=== PATIENT | male | born 1950 | race Caucasian/White ===

== ENCOUNTER → 2016-11-10 | Outpatient (CLI) | payer MEDICARE ==
[~2016-11-10] MED LIST: 'KLONOPIN0.5 MG PO; ALLOPURINOL100 MG PO; ASPIRIN ADULT L81 M1 PO; ASPIRIN325 MG PO; B COMPLEX1 EACH PO; CIALIS20 MG PO; CO Q10100 MG PO; COLCRYS0.6 MG PO; COREG6.25 MG PO; COZAAR25 MG PO; CRESTOR20 MG PO; DIAZEPAM2 MG PO; HYDR25T PO; KEFLEX500 MG PO; LIPITOR40 MG PO; MECLIZINE HCL25 M2 PO; MELATONIN10 M4 PO; NORVASC5 MG PO; OMEPRAZOLE D/R20 MG PO; PLAVIX75 MG PO; PREDNISONE10 MG PO; RED YEAST RICE600 M1 PO; SELENIUM200 MC3 PO; VICODIN 500 MG-1 TAB PO; VITAMIN C500 M4 PO; VITAMIN D-32000 UNI1 PO
== END | disposition home or self-care (01) ==
LOC: US 01:51
DX: N32.89 Other specified disorders of bladder (principal); N28.1 Cyst of kidney, acquired

== ENCOUNTER → 2018-05-31 | Outpatient (CLI) | payer MEDICARE, OTHER ==
--- NOTE | ~2018-05-31 | PF ---
[place], [place] PULMONARY FUNCTION TEST NAME: [id number] UNIT #: [id number] ROOM: DOCTOR: NICOLE BURTON MD,AMARA BIRTHDATE: [birth year] DOS: 05/31/2018 TESTING WAS ORDERED BY: Larry Holloway. HISTORY: The patient is a 67-year-old male, height of 70 inches, weight of 240 pounds, BMI 34.4. The patient was reported diagnosis of pneumonia. There were no past tobacco use. SPIROMETRY: The FVC 4 liters, 92% predicted value. The FEV1 was 3.25 liters, 98% predicted value. Ratio of FEV1/FVC 81%. No changes occurred postbronchodilator testing. Flow volume suggestive of mild obstructive airway pattern. LUNG VOLUMES: Thoracic gas volume 70%, residual volume 98%, total lung capacity 91%. The patient's airway resistance and passive conductance were normal with partial improvement post-bronchodilators. The patient's lung diffusion recorded 65% without correction of carbon monoxide hemoglobin values. FINAL IMPRESSION: Evidence of moderate reduction in lung diffusion to be correlated to the patient's clinical history and radiology data. Mild reversible obstructive lung disease such as bronchial asthma cannot be completely excluded. Clinical correlation would be advised. AMARA RIVERA MD CM:PFREPORT:PULMONARY FUNCTION TEST [id number] AMARA BURTON MD
--- NOTE | 2018-05-31 11:30 | NUR ---
PT ASSESSED FOR HOME O2 FOLLOWS: SAT 94% RA AT REST HR 91 BP 100/70 SAT 93% RA, DURING AMBULATION SAT 95% RA, DURING RECOVERY HR 91 BP 118/78 CALLED OFFICE TO ASK FOR A O2 ASSESSMENT DUE TO PT.S LIPS BEING BLUISH IN COLOR AND HIS SAT% CHECKED AND IT WAS READING 88-89%. ASSESSMENT DONE AFTER AEROSOL GIVEN FOR POST PFT TESTING. PT TOLERATED AMBULATION WELL AND STATES HE REALLY DOES'NT WANT O2 AT HOME.
== END | disposition home or self-care (01) ==
LOC: CP → LAB 11:52
DX: C43.9 Malignant melanoma of skin, unspecified (principal); C43.59 Malignant melanoma of other part of trunk; R21 Rash and other nonspecific skin eruption

== ENCOUNTER → 2018-06-28 | Outpatient (CLI) | payer MEDICARE, OTHER | END | disposition home or self-care (01) | LOC: MRI 04:42 | DX: H74.8X2 Other specified disorders of left middle ear and mastoid (principal); C43.9 Malignant melanoma of skin, unspecified; I10 Essential (primary) hypertension; R42 Dizziness and giddiness; C43.59 Malignant melanoma of other part of trunk; C78.7 Secondary malignant neoplasm of liver and intrahepatic bile duct; R21 Rash and other nonspecific skin eruption ==

== ENCOUNTER → 2018-08-29 | Outpatient (CLI) | payer MEDICARE, OTHER ==
[~2018-08-29] MED LIST changes: +AMBIEN10 M1 PO; +ARTIFICIAL TEA1 EACH OP; +BENADRYL ALLERG25 M5 PO; +CIPRODEX 0.3%-7.5 ML IO; +CIPRODEX 0.3%-7.5 ML OT; +CO Q-10 RED YE1 EACH PO; +COREG3.125 MG PO; +CRANBERRY200 MG PO; +CYCLOBENZAPRINE10 MG PO; +DELTASONE20 M1 PO; +FLOMAX0.4 MG PO; +KEYTRUDA100 MG/4 M IV; +MITIGARE0.6 MG PO; +NEURONTIN100 MG PO; +NEURONTIN300 MG PO; +OMEPRAZOLE20 M2 PO; +PREDNISONE20 M1 PO; +PROBIOTIC1 EAC1 PO; +PROSCAR5 M1 PO; +PROTONIX TR40 M1 PO; +TRIAMTERENE & H1 CAP PO; +TYLENOL325 M2 PO
== END | disposition home or self-care (01) ==
LOC: MRI 02:33
PROVIDERS: Radiology Diagnostic Radiology
DX: C43.9 Malignant melanoma of skin, unspecified (principal); C43.59 Malignant melanoma of other part of trunk; C78.7 Secondary malignant neoplasm of liver and intrahepatic bile duct; C79.31 Secondary malignant neoplasm of brain; R21 Rash and other nonspecific skin eruption

== ENCOUNTER 2018-11-17 21:49 | Inpatient (IN) | payer MEDICARE, OTHER ==
[~2018-11-17] VITALS: Ht 177.8 cm; Wt 112.5 kg
--- NOTE | ~2018-11-17 | EKG ---
[place], [place] ELECTROCARDIOGRAM REPORT NAME: JULITA OSPINA I UNIT #: [id number] ROOM: 511 DOCTOR: YOHAN DRAFT REPORT BIRTHDATE: [birth year] [facility] Test Date: 2018-11-17 Test Time: 22:21:31 Pat Name: JULITA OSPINA Department: Room: 511 Gender: M Hyperbaric Technologist: : 1950 Requested By: CONSTANCE BAILEY Order Number: [id number] Reading MD: Kristi Salmeron MD Measurements Intervals [place] Rate: 93 P: 74 LA: 188 QRS: 104 QRSD: 96 T: 22 QT: 335 QTc: 417 Interpretive Statements Sinus rhythm Left atrial enlargement Right axis deviation Low voltage, precordial leads Borderline T wave abnormalities Compared to ECG 10/26/2018 13:59:25 Atrial abnormality now present Right-axis deviation now present Low QRS voltage now present Left posterior fascicular block no longer present T-wave abnormality still present Electronically Signed On 11-18-2018 10:30:26 PDT by Kristi Salmeron MD CM:EKGRPT:ELECTROCARDIOGRAM REPORT [id number] CONSTANCE MORIN DRAFT REPORT CONSTANCE BAILEY DO
[~2018-11-17 21:49] MED LIST changes: -ARTIFICIAL TEA1 EACH OP; -CIPRODEX 0.3%-7.5 ML OT; -DELTASONE20 M1 PO; -PREDNISONE20 M1 PO; -PROTONIX TR40 M1 PO; -TYLENOL325 M2 PO
[2018-11-17 21:53] VITALS: BP 134/80
[2018-11-17 22:18] LABS: HEMATOCRIT 47.3 % (42.0-52.0); HEMOGLOBIN 15.4 g/dl (14.0-18.0); MEAN CORPUSCULAR HGB CONC 32.6 g/dl (33.0-37.0); MEAN PLATELET VOLUME 10.4 fl (9.6-12.3); PLATELET COUNT AUTOMATED 216 10*3/uL (130-400); RED CELL DISTRI WIDTH 14.6 % (0-14.5); WHITE BLOOD COUNT 17.5 10*3/uL (4.8-10.8)
[2018-11-17 22:33] LABS: ACT PARTIAL THROMBO TIME 21.6 SECONDS (20.0-32.1); INTERNATIONAL NORM RATIO 0.9 (2.0-3.5)
[2018-11-17 22:34] LABS: ALBUMIN 2.9 gm/dl (3.1-4.5); ALKALINE PHOSPHATASE 64 U/L (45-117); BUN 39 mg/dl (7-24); CHLORIDE 104 mmol/L (98-107); CREATININE 1.44 mg/dL (0.70-1.30); LIPASE 163 U/L (73-393); POTASSIUM 4.3 mmol/L (3.5-5.1); SGOT/AST 30 IU/L (3-35); SGPT/ALT 99 U/L (12-78); SODIUM 138 mmol/L (136-145); TOTAL PROTEIN 6.2 gm/dL (6.4-8.2)
[2018-11-17 22:35] LABS: TROPONIN I < 0.015 ng/ml (<0.045)
[2018-11-17 22:39] LABS: PLATELET SUFFICIENCY NORMAL (NORMAL); TOTAL CELLS COUNTED 100 #CELLS
--- NOTE | 2018-11-17 22:45 | NUR ---
PATIENT REFUSED CXR. Jameel CORMIER. DR. PARKS NOTIFIED OF BOTH
[2018-11-18 00:06] VITALS: BP 130/68
[2018-11-18 01:11] LABS: BILIRUBIN NEGATIVE (NEGATIVE); BLOOD 3+ (NEGATIVE); CLARITY SL CLOUDY (CLEAR); COLOR YELLOW (YELLOW); GLUCOSE NEGATIVE (NEGATIVE); KETONE NEGATIVE (NEGATIVE); LEUKO ESTERASE TRACE (NEGATIVE); NITRITE POSITIVE (NEGATIVE)
[2018-11-18 01:19] LABS: BACTERIA 4+; RBC 51-100 rbc/hpf (0-2)
[2018-11-18 01:20] VITALS: BP 143/86
--- NOTE | 2018-11-18 01:20 | NUR ---
A 68, admitted to 5E, under the services of JOHN Hewitt DO with a diagnosis of AMBULATORY DYSFUNCTION. Chief complaint is WEAKNESS. Patient arrived via bed from ER. Monitor applied. Initial assessment completed. Vital signs taken and recorded. JOHN HEWITT DO notified of admission to the unit. Orders received. See assessment for past medical history, medications and allergies. Patient and/or family oriented to unit. [address] visitation policy reviewed. Clothing/patient valuable form completed. SKIN WDI. NO WOUNDS. AMANDA HARE
[2018-11-18] MEDS ORDERED: TYLENOL325 M2 PO (02:02)
[2018-11-18] MEDS ORDERED: CIPRODEX 0.3%-7.5 ML OT (02:11)
[2018-11-18] MEDS ORDERED: NEURONTIN300 MG PO (02:16)
[2018-11-18] MEDS ORDERED: ARTIFICIAL TEA1 EACH OP (02:19)
[2018-11-18] MEDS ORDERED: PROTONIX TR40 M1 PO (02:20)
[2018-11-18] MEDS ORDERED: DELTASONE20 M1 PO (02:21)
--- NOTE | 2018-11-18 03:02 | NUR ---
SPOKE TO DR. SIBLEY AND LET HIM KNOW THE PTS GAVE ME A LIST OF PTS MEDICATIONS AND ON THE LIST THERE WAS A NOTE STATING TO "NOT GIVE ANY ANTIBIOTICS UNLESS CLEARED DR BOO [phone]". DR. SIBLEY STATED TO HOLD MERREM FOR NOW.
--- NOTE | 2018-11-18 03:05 | NUR ---
DR. SIBLEY NOTIFIED OF PTS WISHES TO BE DNR-CC. PAPER WORK ON CHART, SIGNED BY TWO RNS.
--- NOTE | 2018-11-18 06:54 | NUR ---
PT WAS ABLE TO FEEL THAT BLADDER WAS FULL AND VOIDED A TOTAL OF 1100 THIS MORNING. PT NEEDS ASSISTANCE WITH HOLDING URINAL DUE TO NEUROPATHY IN HANDS CAUSING HIM DIFFICULTY TO GRASP ONTO THINGS.
[2018-11-18 06:56] LABS: HEMATOCRIT 43.9 % (42.0-52.0); HEMOGLOBIN 14.3 g/dl (14.0-18.0); MEAN CELL VOLUME 86.8 fl (80.0-94.0); MEAN CORPUSCULAR HGB 28.3 pg (27.0-31.0); MEAN CORPUSCULAR HGB CONC 32.6 g/dl (33.0-37.0); MEAN PLATELET VOLUME 10.3 fl (9.6-12.3); PLATELET COUNT AUTOMATED 171 10*3/uL (130-400); RED BLOOD COUNT 5.06 10*6/uL (4.50-5.90); RED CELL DISTRI WIDTH 14.6 % (0-14.5); WHITE BLOOD COUNT 18.4 10*3/uL (4.8-10.8)
[2018-11-18 07:22] LABS: PLATELET SUFFICIENCY NORMAL (NORMAL); TOTAL CELLS COUNTED 100 #CELLS
[2018-11-18 07:25] LABS: CHLORIDE 107 mmol/L (98-107); SODIUM 141 mmol/L (136-145)
[2018-11-18 07:40] LABS: ALBUMIN 2.7 gm/dl (3.1-4.5); ALKALINE PHOSPHATASE 56 U/L (45-117); BUN 33 mg/dl (7-24); CHOLESTEROL 177 mg/dL (<200); CREATININE 1.21 mg/dL (0.70-1.30); FREE T4 0.77 ng/dl (0.76-1.46); HDL CHOLESTEROL 57 mg/dl (40-60); LDL CHOLESTEROL 87 mg/dL (9-159); PHOSPHOROUS 2.8 mg/dL (2.5-4.9); SGOT/AST 20 IU/L (3-35); SGPT/ALT 83 U/L (12-78); TOTAL PROTEIN 5.6 gm/dL (6.4-8.2); TRIGLYCERIDES 164 mg/dl (<150); VLDL CHOLESTEROL 33 mg/dL (6-40)
[2018-11-18 08:00] VITALS: BP 122/56
[2018-11-18 09:34] LABS: VITAMIN D, 25-HYDROXY 37.4 ng/mL (30-100)
[2018-11-18 12:00] VITALS: BP 125/81
[2018-11-18 16:00] VITALS: BP 123/80
[2018-11-18 20:00] VITALS: BP 124/70
--- NOTE | 2018-11-18 20:09 | NUR ---
NOTIFIED OF PATIENT'S REQUEST FOR EYE DROPS FOR C/O DRY EYES. DISCUSSED PATIENT'S ARTIFICIAL TEARS ON HOME MED REC. INSTRUCTED TO ORDER EYE DROPS PER HOME SCHEDULE.
--- NOTE | 2018-11-18 22:35 | NUR ---
PO ATIVAN GIVEN PER ORDER. PT STATES EARLIER TYLENOL EFFECTIVE. WILL MONITOR. CALL LIGHT IN REACH.
[2018-11-19] VITALS: BP 134/86
--- NOTE | 2018-11-19 05:12 | NUR ---
PT AWAKE IN BED. ASISTED TO USE URINAL. WILL MONITOR. CALL LIGHT IN REACH.
[2018-11-19 06:58] LABS: BASO % 0.1 % (0.0-1.0); EOS % 0.1 % (1.0-4.0); HEMATOCRIT 46.3 % (42.0-52.0); HEMOGLOBIN 14.9 g/dl (14.0-18.0); LYMPH # 0.7 10*3/uL (1.3-4.4); LYMPH % 4.9 % (27.0-41.0); MEAN CELL VOLUME 86.7 fl (80.0-94.0); MEAN CORPUSCULAR HGB 27.9 pg (27.0-31.0); MEAN CORPUSCULAR HGB CONC 32.2 g/dl (33.0-37.0); MEAN PLATELET VOLUME 10.2 fl (9.6-12.3); MONO # 1.1 10*3/uL (0.1-1.0); MONO % 7.6 % (3.0-9.0); NEUT # 12.5 10*3/uL (2.3-7.9); NEUT % 86.1 % (47.0-73.0); PLATELET COUNT AUTOMATED 186 10*3/uL (130-400); RED BLOOD COUNT 5.34 10*6/uL (4.50-5.90); RED CELL DISTRI WIDTH 14.7 % (0-14.5); WHITE BLOOD COUNT 14.6 10*3/uL (4.8-10.8)
[2018-11-19 07:20] LABS: BUN 27 mg/dl (7-24); CHLORIDE 104 mmol/L (98-107); CREATININE 1.04 mg/dL (0.70-1.30); POTASSIUM 3.9 mmol/L (3.5-5.1); SODIUM 139 mmol/L (136-145)
--- NOTE | 2018-11-19 07:44 | NUR ---
PHYSICAL THERAPY Nursing screen received. PT orders also received. Thank you. Marybeth Donovan,PT
[2018-11-19 08:00] VITALS: BP 132/64
--- NOTE | 2018-11-19 08:30 | NUR ---
PHYSICAL THERAPY Patient evaluated on 5, full evaluation to follow. Continue with PT as per plan of care with fall, max (A) x 2, alarms and acute debility precautions. Will require SNF. PAtient is high complexity via chart review, tests and evaluation: [id number]. Thank you for this referral. Marybeth Donovan,PT
--- NOTE | 2018-11-19 08:30 | NUR ---
RECIEVED A CALL FROM PT . SHE IS REQUESTING PT GO TO [facility] ON DISCHARGE. STATES SHE HAS TALKED TO THEM AND THEY SAID ALL THE NEED IS THE REFERRAL FROM US. JOINT SETTER INFORMED. WILL CONTINUE TO FOLLOW.
--- NOTE | 2018-11-19 09:13 | NUR ---
Occupational Therapy evaluation completed on 5 with full eval to follow. PRecautions include fall risk, impaired sensation,IV UE,bed alarm, high complexity level 51444 via chart review, testing and evaluation. Recommend OT per pOC and SNF to enable return home with at prior level. Thank you. Pilar Ford OTR/l
--- NOTE | 2018-11-19 09:38 | NUR ---
DR KELLY AWARE OF RASH LOCATED ON PATIENT'S ARMS, UPPER CHEST, NECK, AND BACK. NO NEW ORDERS RECEIVED AT THIS TIME.
--- NOTE | 2018-11-19 11:39 | NUR ---
Patient and patients daughter requesting a referral to [facility], contacted facililty and faxed referral. waiting on review/acceptance.
[2018-11-19 12:00] VITALS: BP 114/73
--- NOTE | 2018-11-19 12:17 | NUR ---
Web Software Engineer in to talk to patient. Patient states lives at HOME with . There are FEW steps in the home. Physician: YUMIKO [facility]: [facility] Home health services: NONE Patient's level of ADLs: MODERATE ASSIST Patient has working utilities: YES DME: WALKER Follow-up physician's appointment after d/c: WILL BE MADE BY HOSPITALIST NURSE DIRECTOR ON DISCHARGE Does patient want to access PORTAL?: NO Discharge plan PT LIVES AT HOME WITH HIS . PT AND ARE REQUESTING REFERRAL TO [facility] ON DISCHARGE. LASER SET UP OPERATOR WORKING ON IT. WILL CONTINUE TO FOLLOW. . MIKALA KINSEY
--- NOTE | 2018-11-19 13:00 | NUR ---
RECEIVED CALL FROM [facility]. PATIENT AND FAMILY ARE CONSIDERING HOSPICE. THEY NEED ORDER FROM DOCTOR TO SEE PATIENT. WILL BE IN LATER TODAY. WILL FOLLOW UP WITH ATTENDING.
--- NOTE | 2018-11-19 13:08 | NUR ---
DR SIBLEY CALLED ABOUT [facility] CONSULT. AWAITNG NEW ORDER.
--- NOTE | 2018-11-19 13:30 | NUR ---
OT NOTE Attempted to see pt this P.M. for OT session and upon arrival pt had reports of increased fatigue and was requesting to rest at this time. Will check back at a later time/date and continue with POC as able. FOZIA Taveras/Roderick
--- NOTE | 2018-11-19 14:05 | NUR ---
Received hospice order. Patients daughter asked for referral to [facility]. Contacted facility and faxed hospice referral. Waiting on return call.
[2018-11-19 16:00] VITALS: BP 142/76
--- NOTE | 2018-11-19 16:16 | NUR ---
Nursing screen received and Occupational Therapy referral received. Thank you.Pilar Ford OTR/l
--- NOTE | 2018-11-19 17:08 | NUR ---
PATIENT REQUESTING PAIN MEDICATION FOR LEG AND ARM PAIN RATED 8/10 ON 0/10 SCALE. NORCO ADMINISTERED PRESCRIBED. WILL MONITOR FOR EFFECTIVENESS.
--- NOTE | 2018-11-19 17:22 | NUR ---
[facility] IN TO TALK WITH FAMILY AND PATIENT. THEY WANT PALLATIVE CARE. [facility] HAS PALLATIVE CARE THAT GOES TO [facility]. FAMILY WISHES TO BE DISCHARGED TO [facility]. WILL FOLLOW UP WITH CASE MANAGEMENT.
--- NOTE | 2018-11-19 17:25 | NUR ---
PHONE NUMBER FOR DR ROCHA GIVEN TO DR SIBLEY TO CALL ABOUT [facility].
--- NOTE | 2018-11-19 18:01 | NUR ---
CALLED AND LEFT MESSAGE FOR CASE MANAGEMENT ABOUT FAMILY WANTING PALLATIVE CARE AFTER SPEAKING WITH [facility]. FAMILY WOULD NOW LIKE TO BE DISCHARGED TO [place].
--- NOTE | 2018-11-19 18:08 | NUR ---
PATIENT STATES THAT NORCO WAS EFFECTIVE FOR LEG AND ARM PAIN. RATES 5/10 AT THIS TIME. WILL CONTINUE TO MONITOR.
[2018-11-19 20:00] VITALS: BP 146/90
--- NOTE | 2018-11-19 21:33 | NUR ---
PT MEDICATED WITH PO TYLENOL FOR C/O PAIN IN BL HANDS. DESCRIBES PAIN NEUROPATHY PAIN, FEELING LIKE NEEDLES & PINS. PT STATES HIS FEET FEEL MUCH BETTER TODAY, BUT HIS HANDS ARE STILL HURTING. EYE DROPS ALSO ADMINISTERED FOR C/O DRY EYES.
--- NOTE | 2018-11-19 22:24 | NUR ---
PT STATES EARLIER TYLENOL INEFFECTIVE. RATING PAIN IN BL HANDS 12/29. PT MEDICATED WITH PO NORCO PER PRN ORDER. SCHEDULED AMBIEN ALSO ADMINISTERED PER ORDER. WILL MONITOR. CALL LIGHT IN REACH.
[2018-11-20] VITALS: BP 134/86
--- NOTE | 2018-11-20 05:12 | NUR ---
PT ASSISTED TO USE URINAL. DENIES ANY NEEDS AT THIS TIME. WILL MONITOR.
--- NOTE | 2018-11-20 06:48 | NUR ---
NOTIFIED OF URINE CULTURE COMING BACK ESBL. DISCUSSED PATIENT'S HX OF METASTATIC MELANOMA AND FOLLOWING WITH , HIS ONCOLOGIST FROM [facility]. AM SHIFT RN FROM YESTERDAY GAVE 'S NUMBER TO TO DISCUSS PLAN OF CARE. PT STATES HE IS NOT TO BE PUT ON ABX UNTIL CLEARED BY . STATES HE WILL MAKE SURE DAY SHIFT FOLLOWS UP ON SITUATION.
[2018-11-20 08:00] VITALS: BP 128/90
--- NOTE | 2018-11-20 08:09 | NUR ---
Patients family met with [facility] and are interested in their Palliative care. Since hosp[facility] palliative doesn't go to [facility], family has requested to change the referral to [facility]. Contacted facility and faxed referral. waiting on review/acceptance.
--- NOTE | 2018-11-20 09:00 | NUR ---
OT NOTE Pt was seen this A.M. 1:1 for 24 minute OT session. Upon arrival pt was supine in bed. Pt identified by name and and had complaints of generalized weakness. Pt presented to therapy with mod edema in B hands. Pt transferred supine to sit EOB with modA X 2. While sitting EOB challenged pt's dynamic sitting balance needed for increased I and enhanced safety. While weight shifting, crossing midline, and reaching over all planes pt was able to maintain F+ sitting balance. Pt was educated on and completed BUE pumping exercises to help decrease edema. Sit to stand completed from bed level with modA X 2. Challenged pt's static standing tolerance needed for increased I in self care tasks and functional transfers. PT was able to tolerate aprox 30 seconds at a time before sitting due to quick onset of fatigue. Pt then transferred back into bed sit to supine with maxA X 2. There she was left with call light in hand, tray table in place, and bed alarm activated for safety. Positioned pt's UE's onto pillows for edema control. Continue with rec D/C plan to SNF. FOZIA Taveras/Roderick
--- NOTE | 2018-11-20 10:31 | NUR ---
Patient has been accepted to [place]. Requires a 3 night stay. Patient can go tomorrow, Monday11/21/18 if medically stable for discharge.
--- NOTE | 2018-11-20 11:38 | NUR ---
TALKED WITH PT NAE AND INFORMED HER THAT REFERRAL HAS BEEN SENT TO [facility] AND WE ARE WAITING FOR ACCEPTANCE. VOICES UNDERSTANDING.
[2018-11-20 12:00] VITALS: BP 112/60
--- NOTE | 2018-11-20 13:25 | NUR ---
OT NOTE Pt was seen this P.M. for second OT session consisting of 25 minutes. Upon arrival pt was supine in bed. Pt identified by name and . Pt presented to therapy with chronic pain in B hands and min edema. Pt transferred supine to sit EOB with Florencia for assist with BLE. While sitting EOB pt completed pumping exercises for 1 X 10 and provided pt with a "stress ball" for edema control and to increase strength in B hands for increased I in self feeding and self care tasks. Multiple sit to stand transfers completed from bed level with Florencia. Challenged pt's static standing tolerance needed for increased I in self care tasks and functional transfers, pt was able to tolerate aprox 45-60 seconds at a time before sitting due to fatigue. Throughout pt was very unsteady due to impaired sensation in both BLE and BUE requiring occasional Florencia to correct. Educated pt on compensatory technique for improving sensation in BLE and BUE. Pt then transferred back into bed sit to supine with maxA X 2. There he was left with call light in hand, tray table in place, and bed alarm on for safety. Continue with rec D/C plan to SNF. FOZIA Taveras/Roderick
--- NOTE | 2018-11-20 13:40 | NUR ---
PHYSICAL THERAPY Patient seen this pm 1:1 for therapy visit and was resting supine in bed following lunch upon therapist arrival. Patient presents with B hand edema and unrated c/o chronic pain. Patient transfers supine to sit EOB, MIN A and demonstrated improved transfer technique with use of B UE support. Patient able to advance LE's during transfer, but still required therapist assist with R LE to safely complete transfer. Patient instructed on improved sit to stand transfer technique and demonstrated increased velocity during initial rise which contributed to LOB. Patient needed v/c to slow velocity as well as less Intensity with focus on task. Patient completed 8-10 sit to stand transfers with moderate fatigue and brief seated rest between trials, SENIOR CYTOGENETICS LABORATORY DIRECTOR/MIN A. Patient tolerated 1 minute static stand on last trial, CGA and no LOB. Patient returned to supine in bed and remained with call light, tray table, telephone and bed alarm. Will continue per POC as tolerated, total treatment time 18 minutes. Pato Wolfe, BAR HOST
--- NOTE | 2018-11-20 15:05 | NUR ---
PT REQUESTED AND WAS MEDICATED WITH NORCO FOR C/O GENERALIZED PAIN. CALL LIGHT IN REACH. WILL MONITOR
[2018-11-20 16:00] VITALS: BP 116/48
[2018-11-20 20:00] VITALS: BP 150/73
--- NOTE | 2018-11-20 20:35 | NUR ---
PATIENT RESTING IN BED WATCHING TV. NO NEEDS. DENIES PAIN. BED IN LOWEST POSITION, CALL LIGHT IN REACH
--- NOTE | 2018-11-20 23:05 | NUR ---
MEDICATED WITH PRN NORCO FOR C/O PAIN. WILL MONITOR
[2018-11-21] VITALS: BP 142/96
--- NOTE | 2018-11-21 01:31 | NUR ---
EYE DROPS INSTILLED PER PATIENT REQUEST FOR DRY AND ITCHINESS.
[2018-11-21 08:00] VITALS: BP 140/88
--- NOTE | 2018-11-21 09:01 | NUR ---
Patient accepted to [facility], 3 night stay complete. can go when medically stable for discharge.
--- NOTE | 2018-11-21 09:15 | NUR ---
PHYSICAL THERAPY Patient seen this am 1;1 for therapy visit and was resting supine in bed following breakfast upon therapist arrival. Patient voices no new c/o's and still presents with increased B hand / wrist edema. Patient was very pleasant and eager to continue with therapy this session, transfering supine to sit EOB with improved technique / performance, MIN/CGA. Patient performed several sit to stand transfers, v/c for proper hand placement, CGA and use of wh walker standing support. Patient was a little shaky at first upon initial rise and was able to adjust his CHEN to improve static standing balance. Patient instructed and performed SPT to bedside chair, MIN A, wh walker, demonstrating bouts of unsteady step sequence and difficulty picking feet up. Following a brief seated rest, patient ambulated straight line gait, 10'x 1, unsteady gait pattern and increased difficulty with safe walker navigation due to B hand edema. Patient returned to bedside chair, remaining with call light, tray table, telephone, body alarm and was very pleased with his effort this session. Will continue per POC as tolerated, total treatment time 23 minutes. Pato Wolfe, SUEDING MACHINE TENDER
--- NOTE | 2018-11-21 09:34 | NUR ---
PT REQUESTED AND WAS MEDICATED WITH NORCO FOR C/O GENERALIZED PAIN. CALL LIGHT IN REACH. WILL MONITOR. ISOLATION PRECAUTIONS MAINTAINED.
--- NOTE | 2018-11-21 09:35 | NUR ---
OT NOTE Pt was seen this A.M. 1:1 for 39 minute OT session. Upon arrival pt was supine in bed. Pt identified by name and and had complaints of "chronic B hand pain." Pt presented to therapy with min edema in B hands. Pt transferred supine to sit EOB with Florencia for assist with UB. Challenged pt's dynamic sitting balance needed for increased I and enhanced safety. While weight shifting, crossing midline, and reaching over all planes pt was able to maintain G- sitting balance. Pt completed edema exercises to B hands for 1 X 15 to improve edema control. Multiple sit to stand transfers completed from bed level with Florencia and use of w/w for UE support. Challenged pt's static standing tolerance needed for increased I in self care tasks and functiinal transfers, pt was able to tolerate aprox 45-60 seconds at a time before sitting due to fatigue. Pt was educated on compensatory techniques due to being unable to feel his feet or hands. Stand pivot completed from EOB to recliner with Florencia and use of w/w. While sitting upright in the recliner pt completed UB bathing with Florencia for occasional assist with grasping of towel due to limited strength and reaching overhead during hair care. Pt completed oral care with use of toothbrush and built up placed onto brush to improve grasp. Extra time given throughout due to slow rate of performance. Pt was left sitting upright in the recliner with call light in hand, tray table in place, and body alarm on for safety. Continue with rec D/C plan to SNF. BOB Taveras
--- NOTE | 2018-11-21 10:35 | NUR ---
PT STATES MEDICATION EFFECTIVE. CALL LIGHT IN REACH, WILL MONITOR
[2018-11-21 12:00] VITALS: BP 118/75
--- NOTE | 2018-11-21 13:05 | NUR ---
PHYSICAL THERAPY Patient seen this pm 1:1 for therapy visit and was sitting up semi reclined in bedside chair upon therapist arrival. Patient stated "it feels good sitting up out of bed" and reports no new c/o's at this time. Patient performed several sit to stand transfers from low chair surface, Min A, demonstrating improved velocity on initial rise. Patient still needed v/c for proper hand placement / technique prior to sitting back down and demonstrated 75% compliance. Patient ambulates with use of wh walker, 12'x 1, Min/CGA, with bouts of unsteady gait pattern and increased fatigue. Patient returned to EOB sit, transfering sit to supine MIN A. Patient remained in bed with call light, tray table, telephone an bed alarm activated for safety. Will continue per POC as tolerated, total treatment time 17 minutes. Pato Blood, EMERGENCY SERVICES PROFESSIONAL
--- NOTE | 2018-11-21 13:20 | NUR ---
OT NOTE Pt was seen this P.M. 1:1 for second OT session consisting of 15 minutes. Upon arrival pt was sitting upright in the recliner. Pt identified by name and . Pt completed multiple sit to stand transfers from chair level with Florencia due to low surface and use of w/w for UE support. Pt had one LOB that occured forwrds upon inital rise that required Florencia to correct. Challenged pt's static standing tolerance and pt was able to tolerate aprox 60-72 seconds at a time before sitting due to fatigue. Stand pivot completed from recliner to the EOB with CGA and use of w/w. Pt had to look at feet for proper foot placement due to being unable to feel his feet. Pt then transferred sit to supine with Florencia for assist with BLE. Pt was left supine in bed with call light in hand, tray table in place, and bed alarm activated for safety. Continue with rec D/C plan to SNF. FOZIA Taveras/Roderick
[2018-11-21 16:00] VITALS: BP 119/70
--- NOTE | 2018-11-21 19:13 | NUR ---
PATIENT RESTING IN BED WATCHING TV. DENIES PAIN OR NEEDS AT THIS TIME. BED IN LOWEST POSITION, CALL LIGHT IN REACH
[2018-11-21 20:00] VITALS: BP 127/82
--- NOTE | 2018-11-21 22:13 | NUR ---
MEDICATED WITH PRN NORCO FOR C/O PAIN AND EYE DROPS FOR DRY EYES. ELVER CROOK
[2018-11-22] VITALS: BP 124/81
[2018-11-22 06:31] LABS: BASO % 0.1 % (0.0-1.0); EOS # 0.1 10*3/uL (0.0-0.4); EOS % 0.4 % (1.0-4.0); HEMOGLOBIN 14.8 g/dl (14.0-18.0); LYMPH % 7.2 % (27.0-41.0); MEAN CELL VOLUME 86.6 fl (80.0-94.0); MEAN CORPUSCULAR HGB 27.9 pg (27.0-31.0); MEAN CORPUSCULAR HGB CONC 32.2 g/dl (33.0-37.0); MONO # 1.4 10*3/uL (0.1-1.0); MONO % 9.4 % (3.0-9.0); NEUT # 11.9 10*3/uL (2.3-7.9); NEUT % 81.5 % (47.0-73.0); PLATELET COUNT AUTOMATED 155 10*3/uL (130-400); RED BLOOD COUNT 5.31 10*6/uL (4.50-5.90); RED CELL DISTRI WIDTH 14.6 % (0-14.5); WHITE BLOOD COUNT 14.5 10*3/uL (4.8-10.8)
[2018-11-22 06:40] LABS: ALBUMIN 2.8 gm/dl (3.1-4.5); BUN 29 mg/dl (7-24); CHLORIDE 105 mmol/L (98-107); CREATININE 0.98 mg/dL (0.70-1.30); PHOSPHOROUS 2.5 mg/dL (2.5-4.9); POTASSIUM 3.8 mmol/L (3.5-5.1); SODIUM 140 mmol/L (136-145)
--- NOTE | 2018-11-22 06:42 | NUR ---
MEDICATED WITH PRN NORCO FOR C/O PAIN. WILL MONITOR
[2018-11-22 08:00] VITALS: BP 113/71
--- NOTE | 2018-11-22 08:30 | NUR ---
PHYSICAL THERAPY Patient seen this am 1;1 for therapy visit and was supine in bed upon therapist arrival. Patient still present with increased B hand / wrist edema, but little or no pain this morning. Patient stated he did not sleep well last night and felt a little sluggish. Patient transfers supine to sit EOB, SBA and sit to stand Min A from bed. Patient completed SPT to bedside chair, tolerating < 1 minute static stand, then performed several sit to stand transfers from low chair surface, Mod A x 2 and was unable to complete on first trial. Following v/c, patient improved transfer technique with better hand placement and was also able to ambulate 20'x 1, wh walker, Min/CGA, demonstrating very slow braulio. Patient had difficulty picking up / advancing feet and fatigues quickly. Patient returned to bedside chair and remained with call light, tray table, telephone and body alarm for safety. Will continue per POC as tolerated, total treatment time 17 minutes. Pato Wolfe, SALVAGE DIVER
--- NOTE | 2018-11-22 09:00 | NUR ---
OT NOTE Pt was seen this A.M. 1:1 for 30 minute OT session. Upon arrival pt was short sitting in bed. Pt identified by name and and had complaints of increased fatigue and chronic hand pain. Pt presented to therapy with min edema in B hands. Upon arrival pt was eating his breakfast which he was able to complete self feeding using built up handles PA after set up of tray. Pt transferred supine to sit EOB with SBA and good use of bed rails for UE support. While sitting upright on the EOB challenged pt's sitting balance needed for increased I and enhanced safety. Pt was able to maintain G- sitting balance throughout. Attempted to have pt complete finger flexion/extension using "stress ball" for increased corrosion technician strength for increased I in self feeding and self care tasks. Pt was unable to complete due to level of resistance. Task was downgraded and pt then completed 1 X 10 to B hands of squeezing water out of a wash rag. Sit to stand completed from bed level with Florencia and use of w/w for UE support. Stand pivot then completed from EOB to the recliner with CGA and use of w/w. Pt had three LOB throughout one forwards and two to the R that required modA to correct. After a seated rest break pt completed sit to stand from chair level with modA X 2. Challenged pt's static standing tolerance needed for increased I in self care tasks and functional transfers, pt was able to tolerate aprox 2 minutes at a time before sitting due to fatigue. Second sit to stand completed from chair level with modA X 2 and use of w/w. Functional mobility completed to the bathroom with CGA and use of w/w. There he became fatigued resulting in a seated rest break. Pt was left sitting reclined in recliner with call light in hand, tray table in place, and body alarm on for safety. Continue with rec D/c plan to SNF. BOB Taveras
--- NOTE | 2018-11-22 11:04 | NUR ---
PT STATES PAIN 12/29, NORCO GIVEN
[2018-11-22 12:00] VITALS: BP 129/92
--- NOTE | 2018-11-22 15:14 | NUR ---
PT COMPLAINS OF PAIN 12/29, NORCO GIVEN. WILL MONITOR FOR EFFECTIVENESS
[2018-11-22 16:00] VITALS: BP 113/69
--- NOTE | 2018-11-22 16:00 | NUR ---
pt states norco effective
--- NOTE | 2018-11-22 19:49 | NUR ---
24 HOUR CHART CHECK COMPLETE.
[2018-11-22 20:00] VITALS: BP 130/81; BP 140/78
--- NOTE | 2018-11-22 20:00 | NUR ---
PRN NORCO ADMINISTERED FOR 8/10 PAIN IN HANDS AND BACK. WILL CONTINUE TO MONITOR THE PT AND REASSESS IN AN HOUR. NO OTHER COMPLAINTS AT THIS TIME. CALL LIGHT IN LAP.
--- NOTE | 2018-11-22 21:00 | NUR ---
PT STATES NORCO WAS EFFECTIVE.
[2018-11-23] VITALS: BP 145/84
--- NOTE | 2018-11-23 00:30 | NUR ---
PT MEDICATED W/NORCO FOR C/O BILATERAL FEET/HAND NEUROPATHY PAIN.
[2018-11-23 06:30] LABS: BASO % 0.1 % (0.0-1.0); EOS % 0.2 % (1.0-4.0); HEMATOCRIT 46.9 % (42.0-52.0); LYMPH # 1.2 10*3/uL (1.3-4.4); LYMPH % 7.4 % (27.0-41.0); MEAN CORPUSCULAR HGB 27.8 pg (27.0-31.0); MEAN PLATELET VOLUME 10.3 fl (9.6-12.3); MONO # 1.1 10*3/uL (0.1-1.0); MONO % 6.9 % (3.0-9.0); NEUT # 13.2 10*3/uL (2.3-7.9); NEUT % 83.6 % (47.0-73.0); PLATELET COUNT AUTOMATED 178 10*3/uL (130-400); RED BLOOD COUNT 5.39 10*6/uL (4.50-5.90); RED CELL DISTRI WIDTH 14.7 % (0-14.5); WHITE BLOOD COUNT 15.7 10*3/uL (4.8-10.8)
[2018-11-23 06:46] LABS: BUN 30 mg/dl (7-24); CHLORIDE 104 mmol/L (98-107); CREATININE 1.02 mg/dL (0.70-1.30); POTASSIUM 4.2 mmol/L (3.5-5.1); SODIUM 139 mmol/L (136-145)
[2018-11-23 08:00] VITALS: BP 136/84
--- NOTE | 2018-11-23 11:20 | NUR ---
PHYSICAL THERAPY Patient seen this am 1;1 for therapy visit and was supine in bed with his present upon therapist arrival. Patient voices 4/10 B hand pain with increased edema. Patient transfers supine to sit EOB Min A and sit to stand CGA with slow initial rise. Patient ambulates with use of wh walker, CGA, 40'x 1, demonstrating quick onset of fatigue and needed brief standing rest break < 20 seconds, then returned to bedside chair. Patient also demonstrates increaed difficulty advancing LE's which promotes a more "waddling" gait pattern. Patient remained in chair with call light, tray table, telephone and body alarm for safety. Will continue per POC as tolerated, total treatment time 14 minutes. Pato Wolfe, DATA WAREHOUSING ENGINEER
--- NOTE | 2018-11-23 11:32 | NUR ---
OT NOTE Pt was seen this A.M. 1:1 for 17 minute OT session. Upon arrival pt was supine in bed. Pt identified by name and and had complaints of B hand chronic pain. Pt transferred supine to sit EOB with SBA and good use of bed rail for UE support. Sit to stand completed from bed level with Florencia and use of w/w for UE support. Functional mobility completed to the bathroom and back with CGA and use of w/w. Pt had multiple LOB that occured forwards or due to B knees buckling that required modA to correct. Extra time gien throughout due to pt requiring standing rest breaks throughout due to quick onset of fatigue and slow rate of performance. Pt was left sitting upright in the recliner with call light in hand, tray table in place, and body alarm on for safety. Continue with rec D/C plan to SNF. FOZIA Taveras/Roderick
[2018-11-23 12:00] VITALS: BP 123/75
--- NOTE | 2018-11-23 13:20 | NUR ---
Faxed updated progress notes, OT, PT, and medications to Tammy at [facility].
--- NOTE | 2018-11-23 13:27 | NUR ---
SPOKE WITH DR SIBLEY, HE STATES HE SPOKE WITH PT ONCOLOGIST AND PT WILL NOT BE DISCHARGED UNTIL MONDAY. THERESA AT [facility] NOTIFIED.
[2018-11-23 16:00] VITALS: BP 115/75
--- NOTE | 2018-11-23 18:34 | NUR ---
PATIENT MEDICATED WITH NORCO FOR C/O GENERALIZED PAIN 11/28. WILL MONITOR
[2018-11-23 20:00] VITALS: BP 125/71
--- NOTE | 2018-11-23 22:46 | NUR ---
PATIENT MEDICATED WITH NORCO PER PRN ORDER AND PATIENT REQUEST FOR C/O ALL OVER PAIN. RATED PAIN A 8/10 WITH 10 BEING THE WORST. SEE EMAR. REINFORCED USE OF CALL LIGHT.
[2018-11-24] VITALS: BP 127/32
--- NOTE | 2018-11-24 00:01 | NUR ---
24 HR chart check completed.
--- NOTE | 2018-11-24 07:53 | NUR ---
NORCO GIVEN PER ORDER FOR COMPLAINT OF 6 OUT OF 10 PAIN IN HANDS AND LOWER BACK. WILL CONTINUE TO MONITOR AND REASSESS.
[2018-11-24 08:00] VITALS: BP 154/88
[2018-11-24 12:00] VITALS: BP 141/85
[2018-11-24 16:00] VITALS: BP 130/76
[2018-11-24 20:00] VITALS: BP 115/72
--- NOTE | 2018-11-24 20:34 | NUR ---
PATIENT IS RESTING IN BED WITH EASY AND REGULAR RESPERS ON ROOM AIR. ASSESSMENT IS COMPLETE WITH NO S/S OF DISTRESS NOTED AT THIS TIME. BED IS LOW, LOCKED, ALARMED, AND CALL LIGHT IS WITHIN REACH. PRN NORCO GIVEN AT THIS TIME FOR CHRONIC NEUROPATHY PAIN. CALL LIGHT IS WITHIN REACH. SEE SHIFT ASSESSMENT.
[2018-11-25] VITALS: BP 131/75
--- NOTE | 2018-11-25 | NUR ---
PATIENT IS RESTING IN BED WITH EASY AND REGULAR RESPERS ON ROOM AIR. CALL LIGHT IS WITHIN REACH, WILL CONTINUE TO MONITOR.
[2018-11-25 08:00] VITALS: BP 115/69
--- NOTE | 2018-11-25 09:06 | NUR ---
PT RESTING IN BED. NO DISTRESS NOTED. WILL MONITOR NO VOICED C/O. WILL MONITOR
--- NOTE | 2018-11-25 10:56 | NUR ---
PT REQUESTED AND GIVEN NORCO FOR C/O GEN PAIN. PT RATES PAIN 8/10 WILL MONITOR
[2018-11-25 12:00] VITALS: BP 139/68
[2018-11-25 16:00] VITALS: BP 114/66
--- NOTE | 2018-11-25 19:52 | NUR ---
PATIENT ASSISTED OFF BEDPAN AT THIS TIME. CALL LIGHT IS WITHIN REACH.
[2018-11-25 20:00] VITALS: BP 135/79
[2018-11-26] VITALS: BP 111/63
[2018-11-26 06:18] LABS: HEMATOCRIT 45.5 % (42.0-52.0); HEMOGLOBIN 14.9 g/dl (14.0-18.0); MEAN CELL VOLUME 85.8 fl (80.0-94.0); MEAN CORPUSCULAR HGB 28.1 pg (27.0-31.0); MEAN CORPUSCULAR HGB CONC 32.7 g/dl (33.0-37.0); MEAN PLATELET VOLUME 9.7 fl (9.6-12.3); PLATELET COUNT AUTOMATED 151 10*3/uL (130-400); RED CELL DISTRI WIDTH 14.7 % (0-14.5); WHITE BLOOD COUNT 14.7 10*3/uL (4.8-10.8)
[2018-11-26 06:53] LABS: BUN 31 mg/dl (7-24); CHLORIDE 106 mmol/L (98-107); CREATININE 0.92 mg/dL (0.70-1.30); POTASSIUM 3.9 mmol/L (3.5-5.1); SODIUM 141 mmol/L (136-145)
[2018-11-26 07:00] LABS: PLATELET SUFFICIENCY NORMAL (NORMAL); TOTAL CELLS COUNTED 100 #CELLS
[2018-11-26 08:00] VITALS: BP 129/85
--- NOTE | 2018-11-26 11:15 | NUR ---
OT NOTE Pt was seen this A.M. 1;1 for 24 minute OT session. Upon arrival pt was supine in bed. Pt identified by name and and had complaints of B chronic hand pain, B shoulder pain, and being unable to feel B hands and B feet due to neuropathy. Pt presented to therapy with mod edema in B hands. Pt transferred supine to sit EOB with SBA and good use of bed rail for UE support. While sitting EOB pt required maxA for donning B socks due to poor coordination in B hands. Also while sitting EOB pt completed pumping exercises for 1 X 10 for edema control. Multiple sit to stand transfers were completed from bed level with modA for inital stand and then Florencia for second trial. Challenged pt's static standing tolerance needed for increased I in self care tasks and functional transfers. Pt was able to tolerate aprox 60 seconds at a time before sitting due to quick onset of fatigue. Pt then completed stand pivot from EOB to the recliner with Florencia X 2 and use of w/w. Pt had multiple LOB throughout forwards that required modA to correct. Pt was left sitting upright in the recliner with call light in hand, tray table in place, and body alarm on for safety. Continue with rec D/C plan to SNF. FOZIA Taveras/Roderick
--- NOTE | 2018-11-26 11:26 | NUR ---
PHYSICAL THERAPY Patient seen this am 1;1 for therapy visit and was supine in bed with his present upon therapist arrival. Patient reports c/o of increased B hand pain with decreased sensation and stated he has not been out of bed much this weekend. Patient transfers supine to sit EOB with CGA x 1 and needed a few minutes to collect himself. Patient performed several sit to stand transfers, demonstrating increased difficulty on first trial with with c/o of not being able to feel his hands or feet. Patient experienced increased anxiety and quickly returned to EOB sit with therapist assist. Patient educated on improved transfer technique and peformed several seated warmup ex to increase LE circulation. Patient completed several more transfers, Min A, with use of wh walker standing support, prior to performing SPT to bedside chair, MOD A. Patient remained in bedside chair with call light, tray table, cell phone and body alarm for safety. Will continue per POC as tolerated, total treatment time 15 minutes. Pato Wolfe, INJECTION MOLD TOOLING TECHNICIAN
[2018-11-26 12:00] VITALS: BP 129/97
--- NOTE | 2018-11-26 12:45 | NUR ---
PHYSICAL THERAPY Patient seen this pm 1:1 for therapy visit and was sitting up in bedside chair following patient care, upon therapist arrival. Patient was joined by his who was present during MODEL DRESSER visit as patient still voices c/o B hand pain. Patient request transfer back to bed and transfers sit to stand from low chair surface, MOD A, and ambulates with use of wh walker, 10'x 1, Min A, demonstrating increased difficulty with safe walker navigation due to hand pain and decreased concrete finishing machine operator strength. Patient also very unsteady gait pattern, including difficulty with proper foot placement and needed v/c to remain safe. Patient returned to supine in bed, Mod A and remained with call light, tray table, cell phone and bed alarm as [facility] Rep arrived. Will continue per POC as tolerated, total treatment time 13 minutes. Pato Wolfe, MODEL DRESSER
--- NOTE | 2018-11-26 12:57 | NUR ---
OT NOTE Pt was seen this P.M. 1:1 for second OT session consisting of 15 minutes. Upon arrival pt was sitting upright in the recliner. Pt identified by name and and had complaints of 8/10 B hand pain and still having complaints of being unable to feel B hands and feet due to neuropathy. Pt completed sit to stand transfer from chair level with modA X 2 and use of w/w for UE support. Challenged pt's static standing tolerance while patient aide completed his personal care. Pt was able to tolerate aprox 2 minutes before sitting due to fatigue. Pt then completed a second sit to stand with modA X 1 and use of w/w for UE support followed by stand pivot from recliner to the EOB with modA X 2 and use of w/w. Pt's hands had multiple episodes of slipping off the handles due to poor medical examiner strength and being unable to feel resulting in multiple LOB that required maxA to correct. Pt also had three episodes of B knees buckling that required maxA to correct. Pt transferred back into bed sit to supine with Florencia. There he was left with call light in hand, tray table in place, and bed alarm activated for safety. Continue with rec D/C plan to SNF. FOZIA Taveras/Roderick
[2018-11-26] MEDS ORDERED: AMBIEN10 M1 PO (14:05)
[2018-11-26] MEDS ORDERED: PREDNISONE20 M1 PO ×2 (14:05)
[2018-11-26] MEDS ORDERED: NEURONTIN300 MG PO (14:05)
--- NOTE | 2018-11-26 14:33 | NUR ---
Patient is discharged to [place], transportation scheduled for 2:45 PM with [facility]. NH, nursing and all notified.
--- NOTE | 2018-11-26 14:36 | NUR ---
REPORT GIVEN TO CHANO AT [facility].
--- NOTE | 2018-11-26 15:30 | NUR ---
PT TRANSPORTED [facility]IA [facility] TO [facility] AT THIS TIME. VSS. AWARE AND IS AT THE BEDSIDE.
--- NOTE | 2018-11-27 07:22 | NUR ---
PHYSICAL THERAPY CO-SIGN I approve of the Phyical Therapy notes written above. ADAM OLVERA PT
== END 2018-11-26 15:30 | disposition other institution (70) | DRG 555 ==
LOC: ED 21:49 → EDHOLD 11-18 00:57 → 5E 11-18 00:57
PROVIDERS: Internal Medicine; Student in an Organized Health Care Education/Training Program; ADMIT Internal Medicine
DX: M60.88 Other myositis, other site (principal); N17.0 Acute kidney failure with tubular necrosis; C78.7 Secondary malignant neoplasm of liver and intrahepatic bile duct; C79.31 Secondary malignant neoplasm of brain; I25.810 Atherosclerosis of coronary artery bypass graft(s) without angina pectoris; I51.4 Myocarditis, unspecified; E86.0 Dehydration; R26.2 Difficulty in walking, not elsewhere classified; G62.9 Polyneuropathy, unspecified; I10 Essential (primary) hypertension; Z96.653 Presence of artificial knee joint, bilateral; C43.9 Malignant melanoma of skin, unspecified; E78.5 Hyperlipidemia, unspecified; K21.9 Gastro-esophageal reflux disease without esophagitis; Z16.12 Extended spectrum beta lactamase (ESBL) resistance; A49.9 Bacterial infection, unspecified; D89.89 Other specified disorders involving the immune mechanism, not elsewhere classified; Z92.21 Personal history of antineoplastic chemotherapy; Z87.440 Personal history of urinary (tract) infections; Z91.81 History of falling; Z95.1 Presence of aortocoronary bypass graft; Z82.49 Family history of ischemic heart disease and other diseases of the circulatory system; Z83.3 Family history of diabetes mellitus; Z80.8 Family history of malignant neoplasm of other organs or systems; Z79.899 Other long term (current) drug therapy